=== PATIENT | male | born 2000 | race Caucasian/White ===

== ENCOUNTER 2020-10-11 16:38 | Emergency (ER) | payer MEDICAID ==
[~2020-10-11] VITALS: Ht 177.8 cm; Wt 79.4 kg
[2020-10-11] MEDS ORDERED: ipratropium/albuterol 3ml nebule NEB ONE ×2 (17:45→22:05)
--- NOTE | 2020-10-11 23:04 | NUR ---
CALLED [facility] TO SEE ABOUT UPDATE FOR PT THEY ARE STILL NOT AT LEVELS TO TRANSPORT PT
[2020-10-11 23:43] VITALS: BP 142/96
[2020-10-12 06:45] LABS: ABG BASE EXCESS -1.7 mmol/L (-2.0-2.0); ABG HCO3 21.8 mmol/L (22.0-26.0); ABG OXYGEN SATURATION 97.2 % (94-97); ABG PO2 (T) 94.5 mmHg (75.0-100.0); ALLEN'S TEST POSITIVE; FCOHb 1.2 % (0.0-3.9); FMetHb 0.3 % (0.0-1.5); FO2Hb 95.7 % (94-97); PATIENT TEMPERATURE 37.7; TOTAL HEMOGLOBIN 12.7 G/dl (14.0-18.0)
== END 2020-10-11 23:29 | disposition home or self-care (01) ==
LOC: ER 16:39
DX: J96.10 Chronic respiratory failure, unspecified whether with hypoxia or hypercapnia (principal); G71.00 Muscular dystrophy, unspecified; G82.20 Paraplegia, unspecified; Z98.890 Other specified postprocedural states; Z88.8 Allergy status to other drugs, medicaments and biological substances
CPT/HCPCS: 36600; 71045; 82803; 85018; 93005; 94640; 94760; 99285